=== PATIENT | female | born 2000 | race African-American/Black ===

== ENCOUNTER 2020-04-13 19:41 | Emergency (ER) | payer BC, SELFPAY ==
[2020-04-13 19:46] VITALS: BP 120/77; PULSE 92; RESP 18; TEMP 36.5; O2SAT 98
--- NOTE | 2020-04-13 20:13 | ED.GENADULT ---
HPI - General Adult General Chief complaint: Unspecified <Liliana Lim PA-C - Last Filed: 04/13/20 20:16> Stated complaint: wants covid tested <Liliana Lim PA-C - Last Filed: 04/13/20 20:16> Time Seen by Provider: 04/13/20 19:57 <Liliana Lim PA-C - Last Filed: 04/13/20 20:16> Source: patient <Liliana Lim PA-C - Last Filed: 04/13/20 20:16> Mode of arrival: ambulatory <BETTINA Garcia Last Filed: 04/13/20 20:16> Limitations: no limitations <BETTINA Garcia Last Filed: 04/13/20 20:16> History of Present Illness HPI narrative: Patient presents with chief complaint of wanting to be retested for Covid to see if she is positive. Patient states that she tested positive for Covid on March 31 and was told by the health department that she could stop quarantine as she did not have any fevers or cough. Patient states she has some mild fatigue. Patient states that now she has some very mild body aches but states that she has been working out recently so she did not know if that was a contributory factor. Patient denies fever, chills, cough, shortness of breath, chest pain, nausea, vomiting, diarrhea. <Liliana Lim PA-C - Last Filed: 04/13/20 20:16> Related Data Allergies/adverse reactions: Allergies Allergy/AdvReac Type Severity Reaction Status Date / Time No Known Allergies Allergy Verified 04/13/20 19:49 <Liliana Lim PA-C - Last Filed: 04/13/20 20:16> Review of Systems Review of Systems: Narrative: CONSTITUTIONAL: Reports mild body soreness denies fever, chills, or sweats. EYES: Denies visual changes, redness, or discharge. ENT: Denies rhinorrhea, congestion, sore throat, or otalgia. CARDIOVASCULAR: Denies chest pain, palpitations, or edema. RESPIRATORY: Denies cough or dyspnea. GASTROINTESTINAL: Denies abdominal pain, nausea, vomiting, or diarrhea. GENITOURINARY: Denies dysuria or hematuria. SKIN: Denies rash or itching. MUSCULOSKELETAL: Denies back pain, joint pain, or myalgia. NEUROLOGIC: Denies headache, numbness, dizziness, or weakness. PSYCHIATRIC: Denies anxiety or depression. <Liliana Lim PA-C - Last Filed: 04/13/20 20:16> PMFSH Social History Social History: Social History Gender identity (if verbalized by the patient): Female <Liliana Lim PA-C - Last Filed: 04/13/20 20:16> Exam Narrative: Exam Narrative: GENERAL: Well-appearing, well-nourished, and in no acute distress. HEAD: Normocephalic, atraumatic. EYES: PERRLA and EOMI. ENT: Nares clear, no rhinorrhea or epistaxis. Mucous membranes moist. Oropharynx without tonsillar hypertrophy exudate or other lesions. Bilateral TMs pearly castro nonbulging NECK: Supple. No adenopathy or masses. CHEST: Clear to auscultation. No respiratory distress. No wheezes rales or rhonchi HEART: Regular rate and rhythm. No murmur heard. Normal peripheral pulses. EXTREMITIES: Normal range of motion. No edema. SKIN: Warm, dry, no rash. NEURO: No focal deficits. Alert and oriented x3. PSYCH: Normal mood and affect. <BETTINA Garcia Last Filed: 04/13/20 20:16> Course Vital Signs Vital signs: Vital Signs Temperature 36.5 C 04/13/20 19:46 Pulse Rate 92 04/13/20 19:46 Respiratory Rate 18 04/13/20 19:46 Blood Pressure 120/77 04/13/20 19:46 Pulse Oximetry 98 04/13/20 19:46 Temperature 36.5 C 04/13/20 19:46 Pulse Rate 92 04/13/20 19:46 Respiratory Rate 18 04/13/20 19:46 Blood Pressure 120/77 04/13/20 19:46 Pulse Oximetry 98 04/13/20 19:46 <BETTINA Garcia Last Filed: 04/13/20 20:16> Vital Signs Temperature 36.5 C 04/13/20 19:46 Pulse Rate 92 04/13/20 19:46 Respiratory Rate 18 04/13/20 19:46 Blood Pressure 120/77 04/13/20 19:46 Pulse Oximetry 98 04/13/20 19:46 Temperature 36.5 C 04/13/20 19:46 Pulse Rate 92 04/13/20 19:46 Respiratory Rate 18 04/13/20 19:46 Blood Pressure 120/77
--- NOTE | 2020-04-13 22:20 | PC.NURSE ---
nurse Terrell did not make it in the room before patient was d/c. spoke with provider, Naomi that states she printed paperwork, however staff witnessed patient leave without paperwork.
== END 2020-04-13 20:16 | disposition home or self-care (01) ==
PROVIDERS: Emergency Provider Emergency Medicine
DX: U07.1 COVID-19 (principal)
CPT/HCPCS: 99281